=== PATIENT | male | born 1960 | race Two or more races ===

== ENCOUNTER → 2024-10-09 | Outpatient (CLI) | payer MEDICARE, MEDICAID ==
[~2024-10-09] VITALS: Ht 165.1 cm; Wt 57.2 kg
[2024-10-09] MEDS: REGADENOSON 0.4 MG/5 ML SYRG IV ONE ×2 (09:01→09:24)
--- NOTE | 2024-10-09 10:52 | DVHSR ---
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 Stress images still showing the mild inferior wall fixed defect with no evidence of yara-infarct isch emia. Mildly reduced left ventricular systolic function with estimated EF of 49%. Impression: Mild fixed inferior wall defect mainly seen in the basal and mid segment. Mildly reduce d left ventricular ejection fraction 49% no evidence of ischemia. Low risk study NM EXAM: Myocardial Perfusion REST/STRESS Imaging Protocol: Rest Tc-99m/Stress Tc-99m 1 day Resting Data Rest SPECT myocardial perfusion imaging was performed in supine position 60 minutes following the int ravenous injection of 15 mCi of Tc-99m Sestamibi. Time of rest injection: 0745 Time of rest imagin Administration Route: IV Administration Site: Left Arm Pharmacologic Stress Pharmacologic stress test was performed by injecting Regadenoson 0.4 mg IV push followed by the intra venous injection of 30.2 mCi of Tc-99m Sestamibi. Time of stress injection: 0855 Time of stress imagin Administration Route: IV Administration Site: Left Arm Gated Stress SPECT was performed 60 minutes after stress injection. The images were gated to evaluate regional wall motion and calculate left ventricular ejection fracti on. Stress only was performed in the Supine position. 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 Stress images still showing the mild inferior wall fixed defect with no evidence of yara-infarct isch emia. Mildly reduced left ventricular systolic function with estimated EF of 49%. Impression: Mild fixed inferior wall defect mainly seen in the basal and mid segment. Mildly reduce d left ventricular ejection fraction 49% no evidence of ischemia. Low risk study
== END | disposition home or self-care (01) ==
LOC: XYW 07:15
PROVIDERS: ATTEND Specialist
DX: I10 Essential (primary) hypertension (principal); R06.02 Shortness of breath; R07.9 Chest pain, unspecified
CPT/HCPCS: 78452; 93017; A9500; J2785